=== PATIENT | male | born 1995 | race Caucasian/White ===

== ENCOUNTER 2019-06-02 09:18 | Emergency (ER) | payer OTHER ==
--- NOTE | 2019-06-02 09:48 | PHYS DOC ---
COURSE Patient checked into the emergency department originally to be seen for hand pain. I signed up to evaluate this patient, however I was instructed not to see the patient per the patient's wishes. After checking in, the patient asked if his insurance would cover his emergency department visit. He was instructed to contact his insurance company to obtain this information. He asked that he not be seen by the emergency department physician until he had clarified his coverage. I was told by emergency department staff that the patient decided to leave without being seen after contacting his insurance company. Patient did not receive a medical screening exam per his request and no treatments were rendered at his emergency department visit today. SUSAN ANDERSON MD Jun 02, 2019 09:48
== END 2019-06-02 09:50 | disposition left against medical advice (07) ==
LOC: ER 09:18
DX: M79.643 Pain in unspecified hand (principal); Z53.21 Procedure and treatment not carried out due to patient leaving prior to being seen by health care provider